=== PATIENT | female | born 1975 | race Caucasian/White ===

== ENCOUNTER → 2023-06-26 14:07 | Outpatient (REF) | payer BC, SELFPAY | LOC: WDC 14:07 | PROVIDERS: ATTENDING PHYSICIAN Obstetrics & Gynecology; FAMILY PHYSICIAN Family Medicine | DX: Z12.31 Encounter for screening mammogram for malignant neoplasm of breast (principal) | CPT/HCPCS: 77063; 77067 ==

== ENCOUNTER → 2023-08-15 15:58 | Outpatient (REF) | payer BC, SELFPAY | LOC: RAD 15:58 | PROVIDERS: ATTENDING PHYSICIAN Family Medicine | DX: D18.03 Hemangioma of intra-abdominal structures (principal) | CPT/HCPCS: 76700 ==

== ENCOUNTER → 2023-09-04 07:34 | Outpatient (REF) | payer BC, SELFPAY | LOC: RAD 07:34 | PROVIDERS: ATTENDING PHYSICIAN Family Medicine | DX: Z78.0 Asymptomatic menopausal state (principal); E78.5 Hyperlipidemia, unspecified; Z00.00 Encounter for general adult medical examination without abnormal findings | CPT/HCPCS: 71046; 77080 ==

== ENCOUNTER → 2023-09-19 11:22 | Outpatient (REF) | payer BC, SELFPAY | LOC: RAD 11:22 | PROVIDERS: ATTENDING PHYSICIAN Family Medicine | DX: J92.9 Pleural plaque without asbestos (principal) | CPT/HCPCS: 71260; Q9967 ==

== ENCOUNTER 2025-02-01 06:20 | Day surgery (SDC) | payer BC, SELFPAY | END 2025-02-01 15:35 | disposition home or self-care (01) | LOC: GI 06:20 | PROVIDERS: ATTENDING PHYSICIAN Internal Medicine | DX: Z12.11 Encounter for screening for malignant neoplasm of colon (principal); D12.3 Benign neoplasm of transverse colon | CPT/HCPCS: 45385; 88305 ==